=== PATIENT | male | born 1940 | race Caucasian/White ===

== ENCOUNTER → 2021-05-10 13:03 | Outpatient (CLI) | payer MEDICARE, BC ==
[2016-05-03 11:41] VITALS: BMI 25.8
[~2021-05-10 13:03] MED LIST: AVAPRO75 MG PO; BACTRIM DS TABL1 TAB PO; CIPRO500 MG PO; LIVALO4 MG PO; PERISOL437 ML MM
== END | disposition home or self-care (01) ==
LOC: D.HCCARDIO 13:03
PROVIDERS: ATTEND Internal Medicine Interventional Cardiology
DX: R06.09 Other forms of dyspnea (principal)